=== PATIENT | female | born 1975 | race Caucasian/White ===

== ENCOUNTER → 2018-08-06 10:21 | Outpatient (CLI) | payer OTHER, MEDICAID, SELFPAY ==
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
== END ==
PROVIDERS: Family Provider Family Medicine; PCP Family Medicine; Visit Provider Physical Medicine & Rehabilitation
DX: M54.5 Low back pain (principal); M51.36 Other intervertebral disc degeneration, lumbar region; M51.37 Other intervertebral disc degeneration, lumbosacral region; M48.061 Spinal stenosis, lumbar region without neurogenic claudication; M48.07 Spinal stenosis, lumbosacral region
CPT/HCPCS: 72148

== ENCOUNTER → 2020-07-10 08:39 | Outpatient (CLI) | payer OTHER, SELFPAY ==
[2020-07-10 11:00] LABS: Add Manual Diff / Slide Review NO; Basophils Absolute Auto 100 /uL (0-100); Eosinophils Absolute Auto 200 /uL (0-450); Eosinophils Percent Auto 3.1 % (2-4); Hematocrit 42.1 % (36-46); Hemoglobin 14.6 g/dL (12.0-16.0); Lymphocytes Absolute Auto 1600 /uL (1100-4500); Lymphocytes Percent Auto 22.2 % (25-40); Mean Corpuscular HGB Conc 34.7 % (30-36); Mean Corpuscular Hemoglobin 32.3 PG (26-34); Mean Corpuscular Volume 93.1 fL (80-100); Monocytes Absolute Auto 500 /uL (0-900); Neutrophils Absolute Auto 4800 /uL (1500-7000); Neutrophils Percent Auto 66.7 % (50-75); Platelet Count 334 X10^3/uL (150-400); Red Blood Cell Count 4.52 X10^6/uL (4.0-5.2); White Blood Cell Count 7.2 X10^3/uL (4.5-11.0)
[2020-07-10 11:26] LABS: Alanine Aminotransferase 22 IU/L (<35); Albumin 4.3 g/dL (3.5-5.0); Albumin Globulin Ratio 1.7 (1.0-2.8); Alkaline Phosphatase 55 U/L (38-126); Amylase 43 U/L (30-110); Aspartate Aminotransferase 24 IU/L (14-36); BUN Creatinine Ratio 18.6 (6-22); Bilirubin Total 0.6 mg/dL (0.2-1.3); Blood Urea Nitrogen 13 mg/dL (7-17); Calcium 9.4 mg/dL (8.4-10.2); Carbon Dioxide 26 mmol/L (22-32); Chloride 103 mmol/L (98-107); Estimated Glomerular Filt Rate > 60.0 mL/min (>60); Globulin 2.6 g/dL (1.7-4.1); Glucose 95 mg/dL (70-100); HEMOLYSIS < 15 (0-50); Lipase 42 U/L (23-300); Potassium 4.3 mmol/L (3.4-5.1); Sodium 136 mmol/L (137-145); Total Protein 6.9 g/dL (6.3-8.2)
[2020-07-11 06:09] LABS: HBsAg Screen Negative (Negative); Hepatitis A Antibody IgM Negative (Negative); Hepatitis B Core Antibody IgM Negative (Negative); Hepatitis C Antibody <0.1 s/co ratio (0.0-0.9)
== END ==
PROVIDERS: Family Provider Family Medicine; PCP Family Medicine; Referring Provider Physician Assistant; Visit Provider Physician Assistant
DX: R30.0 Dysuria (principal); R10.9 Unspecified abdominal pain; R19.7 Diarrhea, unspecified; R31.9 Hematuria, unspecified
CPT/HCPCS: 36415; 80053; 80074; 82150; 83690; 85025; 87086

== ENCOUNTER → 2020-07-10 13:34 | Outpatient (CLI) | payer OTHER, SELFPAY ==
--- NOTE | 2020-07-10 13:36 | DI.CT.S_ITS ---
PROCEDURE: CT ABDOMEN PELVIS WO CON INDICATIONS: abd pain, hematuria, diarrhea, nausea TECHNIQUE: Noncontrast 5 mm thick sections acquired from the diaphragms to the symphysis. 5 mm thick coronal and sagittal reformats were then performed. For radiation dose reduction, the following was used: automated exposure control, adjustment of mA and/or kV according to patient size. COMPARISON: None. FINDINGS: Image quality: Excellent. Lung bases: Lung bases are clear. Heart size is normal. Urinary system: Both kidneys are normal in size. No kidney stones on the right but there are 2 adjacent lower 3rd left renal collecting system calculi, 1 of which measures 3 mm and the 2nd measures 4 mm. These are not associated with hydronephrosis, and along the course of the ureters through the retroperitoneum no hydroureter is present. No hydronephrosis or perinephric fat stranding. Bladder wall thickness is normal; no calcified bladder stones. Scattered pelvic phleboliths are seen at the pelvic sidewalls bilaterally but none appear to overlap the expected course of the far distal ureters. A right adnexal cyst is present, simple in appearance, measuring up to 2.9 by 1.9 cm. Other solid organs: Liver is normal in size. Gallbladder appears normal . Pancreas is normal in contours. Spleen is normal in size. No adrenal nodules. Peritoneum and bowel: Unenhanced bowel loops demonstrate normal wall thickness and caliber. No free fluid or air. Nodes and vessels: No retroperitoneal or mesenteric adenopathy by size criteria. Aorta and inferior vena cava are normal in caliber. Abdominal wall: No ventral hernias. Pelvis: No free pelvic fluid. No inguinal hernias or adenopathy. Bones: No suspicious bony lesions. No vertebral body compression fractures. IMPRESSION: Within the collecting system of the left kidney 2 separate lower 3rd renal calculi are present 1 measuring 3 mm and the 2nd measuring 4 mm, adjacent. These are not associated with hydronephrosis or hydroureter. No bladder calculus is found. No urothelial or renal cortical mass is suspected. Incidental note is made of a simple appearing ovoid small to moderate right ovarian cyst. Dictated by: Sebastian Armstrong M.D. on 07/10/2020 at 14:21 Approved by: Sebastian Armstrong M.D. on 07/10/2020 at 14:36
== END ==
PROVIDERS: Family Provider Family Medicine; PCP Family Medicine; Referring Provider Physician Assistant; Visit Provider Physician Assistant
DX: R10.9 Unspecified abdominal pain (principal); R19.7 Diarrhea, unspecified; R31.9 Hematuria, unspecified; R11.0 Nausea; N20.0 Calculus of kidney; N83.201 Unspecified ovarian cyst, right side
CPT/HCPCS: 74176

== ENCOUNTER → 2021-02-01 08:37 | Outpatient (CLI) | payer OTHER, MEDICAID, SELFPAY | PROVIDERS: Family Provider Family Medicine; PCP Family Medicine; Visit Provider Physician Assistant | DX: R10.9 Unspecified abdominal pain (principal) | CPT/HCPCS: 87086 ==

== ENCOUNTER 2023-09-23 12:14 | Emergency (ER) | payer OTHER, SELFPAY ==
[2023-09-23 13:07] VITALS: BP 142/77; PULSE 67; RESP 20; TEMP 37.1; O2SAT 100; BMI 29.7
--- NOTE | 2023-09-23 14:11 | ED.EYEPROB ---
HPI - Eye Problem General Chief complaint: Eye Problems Stated complaint: R/foggy eye, can still see out of it Time Seen by Provider: 09/23/23 13:45 Source: patient Mode of arrival: Ambulatory History of Present Illness HPI Narrative: Patient VDC, prior to evaluation Related Data Home Medications Medication Instructions Recorded Confirmed losartan 100 mg tablet (Cozaar) 100 mg ##0 01/08/18 02/15/21 ropinirole PO 02/01/21 02/15/21 cetirizine 10 mg tablet (Zyrtec) 10 mg PO DAILY PRN 02/15/21 02/15/21 meloxicam 15 mg tablet 15 mg PO DAILY 02/15/21 02/15/21 quetiapine 25 mg tablet (Seroquel) 25 mg PO BEDTIME 02/15/21 02/15/21 sertraline 25 mg tablet 25 mg PO DAILY 02/15/21 02/15/21 Previous Rx's Medication Instructions Recorded cyclobenzaprine 5 mg tablet 5 mg PO TID PRN muscle spasm #15 03/15/21 tabs phenazopyridine 200 mg tablet 200 mg PO Q8H 6 doses #6 tabs 03/15/21 (Pyridium) Allergies Allergy/AdvReac Type Severity Reaction Status Date / Time fluoxetine [From PROZAC] Allergy Mild rash Verified 09/23/23 13:12 gabapentin [GABAPENTIN] Allergy Mild rash Verified 09/23/23 13:12 Patient History Medical History Abdominal pain Diarrhea Hematuria Sciatica Family History (Updated 01/15/18 @ 00:00 by Conversion Provider) Brother Age: 53 Hypertension High cholesterol Father Age: 72 Bladder cancer High cholesterol Mother Age: 70 Hypertension Social History Smoking Status: Former smoker Smoking Status: Former smoker alcohol intake frequency: 0-2 drinks per day Substance Use Type: marijuana Exam Initial Vital Signs Initial Vital Signs: Vital Signs Temperature 98.8 F 09/23/23 13:07 Pulse Rate 67 09/23/23 13:07 Respiratory Rate 20 09/23/23 13:07 Blood Pressure 142/77 H 09/23/23 13:07 Pulse Oximetry 100 09/23/23 13:07 Oxygen Delivery Method Room Air 09/23/23 13:07 Course Orders Ordered: Discontinued Medications Diphtheria/Tetanus/Acell Pertussis (Tet,Diph,Pertuss(Acell),Vac/Pf 0.5 Ml Syringe) 0.5 ml IM .ONCE ONE Stop: 09/23/23 13:13 Fluorescein Sodium (Fluorescein 1 Mg Strip) 1 mg EYE-BOTH NOW ONE Stop: 09/23/23 14:12 Proparacaine HCl (Proparacaine 0.5% Ophth Lucinda) 1 drops EYE-BOTH NOW ONE Stop: 09/23/23 14:12 Vital Signs Vital signs: Vital Signs - 8 hr 09/23/23 13:07 Temperature 98.8 F Pulse Rate 67 Respiratory Rate 20 Blood Pressure 142/77 H Pulse Oximetry 100 Oxygen Delivery Method Room Air Discharge Plan Departure Prescriptions: No Action ropinirole PO cyclobenzaprine 5 mg tablet 5 mg PO TID PRN (Reason: muscle spasm) Qty: 15 0RF phenazopyridine [Pyridium] 200 mg tablet 200 mg PO Q8H 0 Days Qty: 6 0RF losartan [Cozaar] 100 MG tablet 100 mg Qty: 0 cetirizine [Zyrtec] 10 mg tablet 10 mg PO DAILY PRN sertraline 25 mg tablet 25 mg PO DAILY quetiapine [Seroquel] 25 mg tablet 25 mg PO BEDTIME meloxicam 15 mg tablet 15 mg PO DAILY Referrals: Michelle Mcarthur ARNP [Primary Care Provider] -
--- NOTE | 2023-09-23 14:49 | PC.NURSE ---
pt was placed in the room. went to see patient. pt no longer in the room. waited . continued to look. no patient. she must have left without telling anyone. Dr. Toure also looked for patient.
== END 2023-09-23 14:52 | disposition left against medical advice (07) ==
PROVIDERS: Emergency Provider Emergency Medicine; Family Provider Family Medicine; PCP Nurse Practitioner Family
DX: H53.8 Other visual disturbances (principal)
CPT/HCPCS: 99281

== ENCOUNTER → 2024-07-31 11:08 | Outpatient (CLI) | payer BC, SELFPAY ==
--- NOTE | 2024-07-31 11:09 | DI.MRI.S_ITS ---
PROCEDURE: MR LUMBAR SPINE WO CON INDICATIONS: Spinal stenosis, lumbar region with neurogenic cla TECHNIQUE: Noncontrast sagittal T1 spin echo and T2 fast echo, sagittal STIR, and T2 fast spin echo through the lumbar spine. In cases with scoliosis, additional coronal T2 fast spin echo may be performed. COMPARISON: [facility] [place], CR, XR LUMBAR SPINE 2 OR 3 VIEWS, 06/13/2024, 16:28. FINDINGS: Image quality: Excellent. Alignment and Curvature: There is 7 mm anterolisthesis of L5 on S1 Bone Marrow: Marrow is of normal overall signal. No acute vertebral body compression fractures. No definite pars defects are seen. Spinal Cord: Conus medullaris terminates at the L1 level. Visualized cord demonstrates normal signal and size. Paraspinous Soft Tissues: No paravertebral masses. T12-L1: Loss of disc signal. No significant disc bulge, canal stenosis or neural foraminal narrowing. L1-L2: Normal appearance. L2-L3: Loss of disc signal. Mild diffuse disc bulge is seen without significant central canal stenosis or neural foraminal narrowing. L3-L4: Loss of disc signal. Mild diffuse disc bulge and bilateral facet arthrosis with mild effacement of thecal sac anteriorly and mild left-sided neural foraminal narrowing. L4-L5: Loss of disc height and disc signal. Broad-based disc bulge and bilateral facet arthrosis with hypertrophy of ligamentum flavum causing gitz-uy-[id number] central canal stenosis, moderate right-sided neural foraminal narrowing and knya-uc-qzrjreww left-sided neural foraminal narrowing. Bulging disc is seen contacting bilateral L4 nerve roots. L5-S1: Loss of disc signal and disc height. Broad-based disc bulge and bilateral facet arthrosis with hypertrophy of ligamentum flavum causing mild central canal stenosis and wcjr-ga-lnpxjktp left-sided neural foraminal narrowing. Mild right-sided neural foraminal narrowing is seen. Bulging disc likely contacting left L5 nerve root. IMPRESSION: 1. Degenerative disc disease in mid to lower lumbar spine causing various degrees of central canal stenosis and bilateral neural foraminal narrowing more notably at L4-5 and L5-S1 levels as described above, slightly progressed since 2020 study. 2. Stable grade 1 anterolisthesis of L5 on S1. No definite pars defects. No acute compression fracture or marrow edema. Dictated by: Christopher Molina M.D. on 07/31/2024 at 17:18 Approved by: Christopher Molina M.D. on 07/31/2024 at 17:26
== END ==
LOC: MRI 11:09
PROVIDERS: Family Provider Family Medicine; PCP Nurse Practitioner Family; Referring Provider Orthopaedic Surgery Orthopaedic Surgery of the Spine; Visit Provider Orthopaedic Surgery Orthopaedic Surgery of the Spine
DX: M48.062 Spinal stenosis, lumbar region with neurogenic claudication (principal); M48.07 Spinal stenosis, lumbosacral region; M51.36 Other intervertebral disc degeneration, lumbar region; M51.37 Other intervertebral disc degeneration, lumbosacral region; M43.17 Spondylolisthesis, lumbosacral region
CPT/HCPCS: 72148

== ENCOUNTER → 2024-09-25 10:06 | Outpatient (CLI) | payer BC, SELFPAY ==
--- NOTE | 2024-09-25 10:09 | DI.CT.S_ITS ---
PROCEDURE: CT LUMBAR SPINE WO CON INDICATIONS: Spinal stenosis, lumbar region with neurogenic cla TECHNIQUE: Noncontrast 3 mm thick sections acquired from the T12 level to the sacrum. Sagittal and coronal reformats were constructed. For radiation dose reduction, the following was used: automated exposure control. COMPARISON: None. FINDINGS: Image quality: Excellent. Bones: There are only 4 non rib-bearing lumbar type vertebra. Vwyl-lh-ojyxdhsk anterior listhesis L4 on S1. No acute vertebral body compression fractures. No suspicious lytic or blastic bony lesions. No pars defects. T12-L1: Normal appearance. L1-L2: Normal appearance. L2-L3: Normal appearance. L3-L4: Normal appearance. L4-S1: There is offset from the anterior listhesis of L4 on S1 which appears to create focal moderate to severe central canal stenosis with moderate bilateral neural foraminal stenosis. Soft tissues: No retroperitoneal masses or hematomas. Visualized aorta is normal in caliber. IMPRESSION: Moderate to severe central canal stenosis at L4-S1. Moderate bilateral neural foraminal stenosis of L4-S1. Dictated by: Paul Olvera M.D. on 09/25/2024 at 11:56 Approved by: Paul Olvera M.D. on 09/25/2024 at 12:04
== END ==
PROVIDERS: Family Provider Family Medicine; PCP Nurse Practitioner Family; Referring Provider Orthopaedic Surgery Orthopaedic Surgery of the Spine; Visit Provider Orthopaedic Surgery Orthopaedic Surgery of the Spine
DX: M48.062 Spinal stenosis, lumbar region with neurogenic claudication (principal); M48.07 Spinal stenosis, lumbosacral region
CPT/HCPCS: 72131

== ENCOUNTER 2024-10-02 10:35 | Day surgery (SDC) | payer BC, SELFPAY ==
[2024-09-25 12:28] VITALS: BMI 29.5
[2024-10-02] VITALS (12 sets, daily range): BP systolic 115–162; BP diastolic 54–90; PULSE 59–82; RESP 14–22; TEMP 36–36.6; O2SAT 94–100; BMI 28.9
--- NOTE | 2024-10-02 | DI.RAD.S_ITS ---
PROCEDURE: XR LUMBAR SPINE 2-3V INDICATIONS: TLIF L5-S1 TECHNIQUE: Low resolution intraoperative fluoroscopic spot films were obtained COMPARISON: None. FINDINGS: Intraoperative fluoroscopic spot films show TLIF L5-S1 IMPRESSION: Fluoroscopic guidance No acute bony abnormality. Approved by: Silver Burns M.D. on 10/02/2024 at 20:04
--- NOTE | 2024-10-02 10:59 | P.OP_ITS ---
Operative Date/Time/Diagnoses Date of procedure: 10/02/24 Time of procedure: 11:45 Pre-op diagnosis: 1. L5-S1 anterolisthesis 2. L5-S1 bilateral foraminal stenosis Post-op diagnosis: same Procedure & Clinicians Procedure: 1. L5-S1 Postero-lateral and posterior interbody fusion 2. L5-S1 interbody cage placement. 3. L5-S1 decompressive laminectomy with bilateral facetecomies 4. L5-S1 Posterior non-segmental instrumentation 5. Elliott of bone marrow from iliac crest 6. Utilization of microsurgical technique and operating microscope 7. Utilization of robotic assisted navigation Same procedure as scheduled: Yes Indications: Patient has been having chronic back pain and worsening lumbar radiculopathy. Patient was found to have L5-S1 anterolisthesis with bilateral foraminal stenosis correlating with her symptoms. Patient failed multiple conservative management with worsening pain weakness and numbness in her lower extremity. Patient has been having difficulty performing activity of daily living. After discussing risks benefits of treatment options, patient elected proceed with surgery. Surgeon: Luís Lopez Vice President Of Compliance: Rimma Murray Click Yes if Unassisted: No Anesthesia Type: General Operative Notes Closure Type: primary Specimen(s): none sent Prosthetic devices, grafts, tissues, transplants, or devices: Globus CREO MIS screws, Rise cage Applied: catheter Estimated Blood Loss (mL): 50 Blood products transfused: none Procedure in detail: Patient was seen in the preoperative area. Risks and benefits of the surgery was discussed with the patient. Informed consent was obtained from the patient and placed in the chart. Surgical site was marked. Patient was taken to the operative room. General anesthesia was administered. Prophylactic antibiotic was given to the patient less than 30 min before the incision was made. Patient was placed into a prone position on the Reymundo table. Patient's back was then prepped and draped in the sterile fashion. Time-out was performed at this time. After patient was prepped and draped, patient's PSIS was palpated and marked bilaterally. Small 1 cm incision was made over the PSIS for placement of the reference probes. Two trocar was placed into the PSIS 1 on each side. The reference probe was attached to the trocar of the reference apparatus. At this time the C-arm imaging was used to confirm AP and lateral of L5-S1 vertebrae and merged the C-arm imaging using the medidametrics robotic navigation system with the CT of the lumbar spine. After successful merging was completed and confirmed, skin marker was used to sha out the skin incision using the medidametrics robotic arm. Bilateral incision was made at this time. Pre templated trajectory was used and guided using the medidametrics robotic navigation system for bilateral L5-S1 pedicle screw placement. This was done by using the robotic arm to guide the high-speed bur to make a cortical entry point. Next a drill was placed also using the robotic arm and guided using the navigation system drilling partially through bilateral L5, S1 pedicles. Next L5-S1 pedicle screws it was pre templated and measured was placed onto the power dedicated intermodal truck driver and inserted into the pedicles bilaterally. After all 4 screws were placed C-arm imaging was taken of both AP and lateral to confirm the placement. Excellent placement of the screws were confirmed and a matched precisely with the pre planned screw placement using the navigation system. MARs retractor was inserted using [employer] guidence. Globus MARS retractors was placed inside the incision and docked onto the L5 lamina. Using microsurgical technique and operating microscope, a L5 laminectomy and L5-S1 facetectomy was performed using a Kerrison rongeur. Patient was found have severe lateral recess and neural foramen stenosis which was fully decompressed after the laminectomy facetectomy. More than 75% of the facets were removed during the process of decompression rendering L5-S1 level grossly unstable and required a fusion procedure at the same time. The disc space at L5-S1 was identified, and a total diskectomy was performed at L5-S1 level. The endplates were decorticated using a rasp and shaver. The total diskectomy and decortication was performed at L5-S1 level in order to to accomplish a L5-S1 fusion. The local bone from the laminectomy and facetectomy was saved for local bone grafting. After the total diskectomy and decortication was completed, Viacel bone graft material was combined with local bone that was harvested earlier. At this time, a separate skin is incision was made over the iliac crest. A Jamshidi needle was inserted into the iliac crest through a separate skin incision on the right. 5 cc of bone marrow aspiration was obtained through the separate skin incision using a Jamshidi needle from the iliac crest. The bone marrow aspiration was combined with local bone and the Viacel bone grafting material. The bone grafting material was placed into the L5-S1 interbody space along with a expandable cage. The cage was expanded to its maximum height using the torque limiting screwdriver. The disc preparation as well as the cage insertion were also performed under navigation guidance. After the cage was placed, AP and lateral C-arm imaging was taken to confirm placement of the cage and excellent position was confirmed. Globus MARS retractor was inserted and docked onto the L5-S1 posterolateral gutter on the right side. Using the power drill, posterior-lateral decortication was performed at L5-S1 level until bleeding cortical bone was identified. The remaining bone grafting material was placed into the L5-S1 posterior lateral gutter he order to accomplish posterolateral fusion at the L5- S1 level. At this time the tulips were attached to the L5-S1 pedicle screw shanks. After measuring the length of the rods, they were inserted into the tulips of the pedicle screws and locked in place using locking caps and torque limiting screwdriver bilaterally. Total 4 caps and 2 titanium rods was used in order to complete the posterior instrumentation construct. After all the hardware was placed, and confirmed with AP and lateral C-arm imaging, the wound was then irrigated with sterile normal saline and packed with Ray-Jamison gauze for 3 min to accomplish hemostasis. After the gauze was removed the deep fascia was closed with #1 Vicryl suture. The subcutaneous layer was closed with 2-0 Vicryl. The skin was closed with skin halie. Patient tolerated the procedure well. There were no complications. Neuro monitoring system was used to monitor patient's neurologic status throughout entire procedure. There was no disturbance of the neural monitoring signals throughout the case. The Operation could not have been safely performed without compromising the technical result or length of the procedure, without the assistance of a skilled geological survey field assistant. The geological survey field assistant was medically necessary for proper positioning, retraction and manipulation of instruments, proper exposure, surgical preparation, and manipulation of tissue. Complications: none Post-operative Condition: stable Disposition: PACU Plan for aftercare: Admit to inpatient hospital
--- NOTE | 2024-10-02 11:15 | PM.PREOP ---
Pre-operative Note Interval Note History & Physical reviewed/Exam performed by Physician: Yes Changes to H&P: No
[2024-10-02] MEDS: ACETAMINOPHEN 325 MG TABLET 975 MG PO (11:34)
[2024-10-02] MEDS: LACTATED RINGERS 1,000 ML 42 ML IV (11:35)
[2024-10-02] MEDS: CEFAZOLIN 2 GM/100 ML PREMIX 100 ML IV ×2 (11:48→20:18)
[2024-10-02] MEDS: BUPIVACAINE 0.25% (PF) 60 ML, EPINEPHrine 0.15 MG INJ (11:59)
--- NOTE | 2024-10-02 12:05 | SUR.OPER ---
Prone on spine table, head in foam head support, padded chest and pelvic supports, gel pad at knees, lower legs supported by pillows; nipples, genitalia and toes free of pressure, arms secured on foam padded arm boards at <90 degrees abduction. Tape over blanket at thigh secured to table.
[2024-10-02] MEDS: BUPIVACAINE LIPOSOME 266 MG/20 ML VIAL INJ (13:27)
[2024-10-02] MEDS: HYDROMORPHONE 1 MG INJ IV ×6 (13:56→14:26)
[2024-10-02] MEDS: OXYCODONE IR 5 MG TABLET PO ×2 (13:57→14:58)
[2024-10-02] MEDS: hydrOXYzine HCL 25 MG TABLET 50 MG PO (13:57)
[2024-10-02] MEDS: fentaNYL 100 MCG/2 ML INJ 50 MCG IV ×2 (14:28→14:35)
[2024-10-02] MEDS: LORazepam 2 MG/ML INJ 0.5 MG IV (14:35)
[2024-10-02] MEDS: LACTATED RINGERS 1,000 ML 125 ML IV (16:21)
[2024-10-02] MEDS: ONDANSETRON 4 MG ODT SL (17:23)
--- NOTE | 2024-10-02 17:25 | PC.NURSE ---
TLIF: Pt found oob by bathroom door, only stopped because the tubing would not reach further, asked significant other to turn online marketer light and thats how this policy writer sales found them. Pt did get vd in the bathroom but it was to late to place a hat. She had nausea after getting up and received some zofran SL. This seemed to help. She needed max cues to follow her back precautions. Afterwards bed alarm was placed. Do you really think I need that? Discussed safety and the potential to fall. She seemed to understand.
[2024-10-02] MEDS: SCOPOLAMINE 1 PATCH TOP (19:16)
[2024-10-02] MEDS: METOCLOPRAMIDE 10 MG/2 ML INJ 5 MG IV (19:16)
[2024-10-02] MEDS: SENNOSIDES 8.6 MG TABLET 17.2 MG PO (20:18)
[2024-10-02] MEDS: DOCUSATE 100 MG CAPSULE PO (20:19)
[2024-10-02] MEDS: ACETAMINOPHEN 325 MG TABLET 650 MG PO (20:19)
[2024-10-03] VITALS: BP 116/69; PULSE 63; RESP 20; TEMP 37; O2SAT 97
[2024-10-03] MEDS: CEFAZOLIN 2 GM/100 ML PREMIX 100 ML IV (03:25)
[2024-10-03] MEDS: OXYCODONE IR 5 MG TABLET PO (03:26)
[2024-10-03 05:15] VITALS: BP 118/56; PULSE 58; RESP 16; TEMP 37.4; O2SAT 98
[2024-10-03] MEDS: ACETAMINOPHEN 325 MG TABLET 650 MG PO (06:29)
[2024-10-03 08:00] VITALS: BP 136/55; PULSE 64; RESP 15; TEMP 36.9; O2SAT 98
[2024-10-03] MEDS: DOCUSATE 100 MG CAPSULE PO (08:27)
--- NOTE | 2024-10-03 09:02 | PT.IIE ---
Current Diagnoses Spondylolisthesis, lumbar region (10/02/24) Spinal stenosis, lumbar region with neurogenic claudication (10/02/24) Surgery Performed Operation Date: 10/02/24 12:15 Actual Procedures p L5-S1 TLIF-Nithin - Luís Lopez MD Surgical History (Last Updated 09/25/24 @ 14:13 by Stacy Dale, RN) History of hysterectomy S/P ACL repair Medical History (Last Reviewed 03/15/21 @ 09:11 by Tobi Meredith PA-C) Abdominal pain Diarrhea Hematuria Sciatica Physical Therapy Inpatient Evaluation/Re-Eval M1 PT/OT-IP Prior Functional Status Start: 10/03/24 08:24 Freq: NEEDED Status: Active Protocol: Document 10/03/24 08:35 MB (Rec: 10/03/24 09:02 MB [id number]) Medical Review Prior Functional Status Medical History Reviewed Yes Diet/Fluid Consistency Regular Communication WNLs Mobility and Gait I Activities of Daily Living and IADL's I Social History Household Members significant other Living Arrangements House Number of Floors (Floors) One Floor Number of Stairs To Enter/Railing? 3 steps and B rail to enter, can reach one rail at a time Home Environment Standard Height Toilet,Tub/ Shower Home Equipment Front Wheel Walker,Crutches, Hand Held Shower,Grab Bars In Shower Additional Social History Comment Not working M2 PT-IP Current Condition Start: 10/03/24 08:24 Freq: NEEDED Status: Active Protocol: Document 10/03/24 08:35 MB (Rec: 10/03/24 09:02 MB [id number]) Physical Therapy Current Condition Current Condition Evaluation Date 10/03/24 Treatment Diagnosis L5-S1 fusion M3 PT-IP Subjective Start: 10/03/24 08:24 Freq: NEEDED Status: Active Protocol: Document 10/03/24 08:35 MB (Rec: 10/03/24 09:02 MB [id number]) Subjective Physical Therapy Visit Type Type Initial Evaluation Visit Start Time 08:35 Visit Stop Time 08:54 Number of PRECONSTRUCTION MANAGER Visits 0 Physical Therapy Visit Comments Patient Comments Pt up walking with SO in room and is agreeable to PT. Therapy Pain Assessment Pain When Pain Assessed At Rest Pain Present Pain Present Pain Reported Location back Intensity 4 Scale Used Numeric (0 - 10) M4 PT-IP Mobility and Gait Start: 10/03/24 08:24 Freq: NEEDED Status: Active Protocol: Document 10/03/24 08:35 MB (Rec: 10/03/24 09:02 MB [id number]) PT-Bed Mobility Assessment Rolling Type of Rolling Log Rolling,Roll to Right Level of Assist Standby Assistance Supine to Sit Supine to Sit Standby Assistance Sit to Supine Sit to Supine Standby Assistance Scooting Scooting to Edge of Bed Standby Assistance PT-Transfer Assessment Sit to and From Stand Sit to and from Stand Standby Assistance Equipment Transfer Assistive Device Gait Belt,Front Wheeled Walker Orthotic/Prosthetic Devices or Brace: No Transfers Transfer Destination Bed,Chair Transfer Technique Ambulation Transfer Ability Level of Assist Standby Assistance,1 Person Assistance,Use of Upper Extremities Comments Mobility Comments Cues for hand placement to push up from the bed and to reach back for the chair and not to hold onto walker Gait Assessment Gait Gait Assistance Required: Standby Assistance Distance (Feet) 150 Able to Maintain Weight Bearing Status Yes During Gait Assistive Devices Assistive Device Gait Belt,Front Wheeled Walker Orthotic/Prosthetic Devices or Brace: No Gait Deviations General Gait Pattern Antalgic Factors Limiting Gait Function Factors Limiting Gait Function Decreased Activity Tolerance, Limited Range of Motion,Pain Comments Gait Comments 150'x2 with slow gait and use of RW Stair Climbing Assessment Evaluation Level of Assist On Stairs Standby Assistance Devices Stair Climbing Assistive Devices Left Railing Technique/Endurance Stair Climbing Direction Ascend and Descend Stair Climbing Technique Step to Step Number of Steps Climbed 3 Query Text: Stair Climbing Set # Repetitions (reps) 1 Comments Stair Climbing Comments Both hands on left rail and facing left rail and pt performs step-to gait ascend and descend PT-Balance Assessment Sitting Balance and Reactions Static Sitting Balance Ability Good Dynamic Sitting Balance Ability Good Standing Balance and Reactions Static Standing Balance Ability Good Dynamic Standing Balance Ability Fair Device Used RW M5 PT-IP Objective Assessments Start: 10/03/24 08:24 Freq: NEEDED Status: Active Protocol: Document 10/03/24 08:35 MB (Rec: 10/03/24 09:02 MB [id number]) Orientation Orientation/Cognition Level of Alertness Alert Orientation Name,Age,Birthday,Month,Date, Year,Day of Week,Place, Situation Language Function Ability No Deficits Noted Safety Awareness Understands Safety Issues Memory Description No Deficits Noted Gross Range of Motion Upper Extremity ROM Impairments Defer to OT Lower Extremity ROM Assessment Within Functional Limits Strength Lower Extremity Strength Assessment Within Functional Limits Comments Strength Comments Did not push hip range or perform MMT today but functionally, WNLs Coordination Assessment Gross Coordination Gross Coordination Impaired Assessment Coordination Comments Slow movement POD1 Sensation Assessment Sensation Gross Sensation WNL Muscle Tone Muscle Tone WNL Yes M6 PT-IP Treatment Start: 10/03/24 08:24 Freq: NEEDED Status: Active Protocol: Document 10/03/24 08:35 MB (Rec: 10/03/24 09:02 MB [id number]) Physical Therapy Treatment Education Education Provided Precautions,Post-Op Packet, Safety M7 PT-IP Assessment and Plan Start: 10/03/24 08:24 Freq: NEEDED Status: Active Protocol: Document 10/03/24 08:35 MB (Rec: 10/03/24 09:02 MB [id number]) PT Summary Assessment and Plan Potential Rehabilitation Potential Excellent Status of Condition at Evaluation Evolving Summary Impairments Pain,ROM,Balance,Bed Mobility, Transfers,Gait,Activity Tolerance Progress Towards Goals Safe For Discharge Assessment Summary Pt is up moving in room upon arrival POD1 L5-S1 fusion and her SO is nearby. She does well with back precaution and log roll training, gait with RW and stair training. No further acute PT needs. Recommend OPPT and assistance at home. Frequency of Treatment Frequency Of Treatment Discharge Precautions Lumbar Precautions Log Roll,No Twisting,Limit Bending,Lifting Restriction of 10 lbs,Gait Belt above Incisional Area Recommendations To Nursing Amount of Assist Needed Standby Assistance Discharge Recommendations PT Discharge Recommendations Home with Assistance, Outpatient PT Transportation Needs at Discharge Private Vehicle
--- NOTE | 2024-10-03 09:50 | OT.IP.EVAL ---
Current Diagnoses Spondylolisthesis, lumbar region (10/02/24) Spinal stenosis, lumbar region with neurogenic claudication (10/02/24) Surgery Performed Operation Date: 10/02/24 12:15 Actual Procedures p L5-S1 TLIF-Robot - Luís Lopez MD Past Medical History (Last Reviewed 03/15/21 @ 09:11 by Tobi Meredith PA-C) Abdominal pain Diarrhea Hematuria Sciatica Surgical History (Last Updated 09/25/24 @ 14:13 by Stacy Dale RN) History of hysterectomy S/P ACL repair Occupational Therapy Inpatient Evaluation/Re-Eval M1 PT/OT-IP Prior Functional Status Start: 10/03/24 08:24 Freq: NEEDED Status: Active Protocol: Document 10/03/24 09:51 [facility] (Rec: 10/03/24 10:04 [facility] [id number]) Medical Review Prior Functional Status Medical History Reviewed Yes Diet/Fluid Consistency Regular Communication WNLs Mobility and Gait I but had pain. Activities of Daily Living and IADL's I Social History Household Members significant other Living Arrangements House Number of Floors (Floors) One Floor Number of Stairs To Enter/Railing? 3 steps and B rail to enter, can reach one rail at a time Home Environment Standard Height Toilet,Tub/ Shower Home Equipment Front Wheel Walker,Crutches, Hand Held Shower,Grab Bars In Shower Additional Social History Comment Not working M2 OT-IP Current Condition Start: 10/03/24 09:50 Freq: Status: Active Protocol: Document 10/03/24 09:51 [facility] (Rec: 10/03/24 10:04 [facility] [id number]) Occupational Therapy Current Condition Current Condition Evaluation Date 10/03/24 Treatment Diagnosis S/P L5-S1 TLIF Diagnosis Onset Date 10/02/24 Post Operative Precautions Lumbar Precautions Log Roll,No Twisting,Limit Bending,Lifting Restriction of 10 lbs,Gait Belt above Incisional Area M3 OT- IP Subjective and Pain Start: 10/03/24 09:50 Freq: Status: Active Protocol: Document 10/03/24 09:51 [facility] (Rec: 10/03/24 10:04 [facility] [id number]) OT- Subjective Occupational Therapy Visit Type Type Initial Evaluation Visit Start Time 09:13 Visit Stop Time 09:50 Occupational Therapy Visit Comments Patient Comments Pt agreed to get up and get dressed. Patient/Caregiver Goals TO go home. OT Pain Assessment Pain When Pain Assessed At Rest Pain Present Pain Present Pain Reported Location back Intensity 5 Scale Used Numeric (0 - 10) M4 OT- IP ADL's Start: 10/03/24 09:50 Freq: Status: Active Protocol: Document 10/03/24 09:51 [facility] (Rec: 10/03/24 10:04 [facility] [id number]) OT DCN-Dhjd-Tukrhqh General Evaluation Self-Feeding Ability Independent OT ADL-Grooming Comments OT Grooming Comments Not performed. OT ADL-Oral Care Comments Oral Care Comments Educated to hinge at her hips or just spit into a cup to best follow her back precautions. OT ADL-Dressing General Eval Lower Body Dressing Ability Maximum Assistance Areas Needing Assistance Socks,Shoes Comments OT Dressing Comments Went over use of LB dressing equipment and pt looking to obtain items. OT ADL-Toileting General Evaluation Toileting Ability Independent Comments OT Toileting Comments Able to practice and pt able to stand and able to reach appropriately to wipe. Suggested to use wipes. Showed pt use of toilet paper aid. OT ADL-Bathing Comments OT Bathing Comments Pt states to shower at home. Spoke of dressing/bandage care for showering needs. Suggested pt get a tub bench. M5 OT- IP IADL's Start: 10/03/24 09:50 Freq: Status: Active Protocol: Document 10/03/24 09:51 [facility] (Rec: 10/03/24 10:04 [facility] [id number]) OT-Instrumental Activities of Daily Living Deficits IADL Deficits Identified Deficits Home Safety Awareness Awareness of Need for Assistance at Home Good Awareness Ability to Problem Solve Emergency Able to Problem Solve Situations Home Safety Comments Pt has a supportive SO to assist with all her needs. Meal Preparation Meal Preparation Caregiver Provides Assist Equalizer Operator Equalizer Operator Caregiver Provides Assist M6 OT- IP Functional Cognition Start: 10/03/24 09:50 Freq: Status: Active Protocol: Document 10/03/24 09:51 [facility] (Rec: 10/03/24 10:04 [facility] [id number]) Cognitive Factors Limiting Selfcare Function Cognitive Ability Level of Alertness Alert Patient Orientation Name,Age,Birthday,Month,Date, Year,Day of Week,Place, Situation Attention Span Ability Capable of Focused Attention, Capable of Sustained Attention Ability to Follow Commands Able to Follow Multi-Step Commands Safety Awareness Decreased Ability to Apply Precautions,Underestimates Need for Assistance Cognitive Comments Cognitive Assessment Comments Pt needing reminders to to slow down and follow her back precautions. OT- Vision and Hearing OT- Hearing Assessment OT- Hearing Assessment WFL OT- Vision Assessment Visual Acuity Glasses All The Time Visual Attentiveness WFL Occular Pursuits WFL M7 OT- IP Mobility and Balance Start: 10/03/24 09:50 Freq: Status: Active Protocol: Document 10/03/24 09:51 [facility] (Rec: 10/03/24 10:04 [facility] [id number]) OT-Transfer Assessment Sit to and From Stand Sit to and from Stand Standby Assistance Transfers Transfer Ability Standby Assistance Technique Transfer Destination Chair,Toilet Comments Mobility Comments SBA with FWW. OT- Balance Assessment Sitting Balance and Reactions Static Sitting Balance Ability Normal Dynamic Sitting Balance Ability Good Standing Balance and Reactions Static Standing Balance Ability Good Dynamic Standing Balance Ability Good M8 OT- IP Objective Assessments Start: 10/03/24 09:50 Freq: Status: Active Protocol: Document 10/03/24 09:51 [facility] (Rec: 10/03/24 10:04 [facility] [id number]) OT Gross Range of Motion Upper Extremity Range of Motion Assessment Within Functional Limits OT Strength Upper Extremity Strength Assessment Within Functional Limits M9 OT- IP Assessment and Plan Start: 10/03/24 09:50 Freq: Status: Active Protocol: Document 10/03/24 09:51 [facility] (Rec: 10/03/24 10:04 [facility] [id number]) OT Summary Assessment and Plan Potential Rehabilitation Potential Excellent Analytic Complexity at Evaluation Low Summary OT Impairments Pain,Strength,Balance, Functional Mobility Progress Towards Goals Progressing Toward Goals Assessment Summary Pt low complexity and main barriers are pain, needing cues to slow down and follow her back precautions. Pt to go home with her SO to assist and eventually after recovery to outpt PT. Goals Grooming Goal Independent Dressing Goal Independent,Long Handled Shoe Horn,Certified Welding Inspector,Sock Aid Toileting Goal Independent Bathing Goal Minimal Assistance Toilet Transfer Goal Independent Shower Transfer Goal Standby Assistance Days to Meet Goals 5 Frequency of Treatment Other frequency 5x/week Treatment Plan OT Treatment Plan ADL Training,Functional Mobility,Patient/Family Education,Discharge Planning Discharge Recommendations OT Discharge Recommendations Home with Assistance Home Equipment Needs LB dressing equipment, BSC, tub bench Transportation Needs at Discharge Private Vehicle
--- NOTE | 2024-10-03 09:58 | P.DS_ITS ---
History of Present Illness History of Present Illness Chief complaint: TLIF *OPB* Narrative: Emilie is a pleasant 49 year old female who is POD#1 s/p L5-S1 Postero-lateral and posterior interbody fusion by Dr. Lopez. This morning patient states she is doing well, her pain is mild-moderate and well controlled w/ oral Oxy PRN and APAP for baseline pain control. No radiating pain, she states she is ready to go home. She has been up and worked w/ OT this morning, she is urinating well w/o issue. She lives at home with her who is willing and able to aid in her postop recovery. She has post-op pain medications at home. Denies fever, chills, chest pain, SOB, nausea, vomiting. Discharge Providers Provider Date of admission: 10/02/24 10:38 Discharge Date: 10/03/24 Primary care physician: MAXWELL Allisno Consults: 10/02/24 14:55 Consult to Occupational Therapy Evaluate & Treat Comment: Physician Instructions: Evaluate and treat Consult to Physical Therapy Evaluate & Treat Comment: Physician Instructions: Evaluate and Treat Discharge provider: Savannah Cervantes PA-C Summary Hospital Course Discharge Diagnosis: L5-S1 Postero-lateral and posterior interbody fusion Hospital Course: Uncomplicated hospital course Exam Vital Signs (past 8 hours): - 10/03/24 05:15 10/03/24 08:00 Temperature 99.3 F 98.4 F Pulse Rate 58 L 64 Respiratory Rate 16 15 Blood Pressure 118/56 L 136/55 L Pulse Oximetry 98 98 Oxygen Flow Rate 0 0 Oxygen Delivery Method Room Air Oxygen Flow Rate 0 Narrative Exam Narrative: Patient sitting up comfortably in bedside chair, dressed in her home clothes during our interview today. No acute distress. AOx3. 5/5 strength with DF, PF, EHL bilaterally. Gross sensation intact throughout bilateral lower extremities. Calves soft and non-tender bilaterally. Brisk capillary refill, pulses intact. Post-surgical dressing clean, dry and intact over the lumbar spine without drainage. PFSH Medical History (Updated 10/08/23 @ 00:00 by ) Sciatica Abdominal pain Hematuria Diarrhea Surgical History (Updated 09/25/24 @ 14:13 by Stacy Dale RN) S/P ACL repair History of hysterectomy Family History (Updated 01/15/18 @ 00:00 by Conversion Provider) Brother Age: 54 Hypertension High cholesterol Father Age: 73 Bladder cancer High cholesterol Mother Age: 71 Hypertension Social History household members: significant other Smoking Status: Current some day smoker alcohol intake: former Discharge Assessment & Plan Assessment and Plan Assessment: stable s/p L5-S1 Postero-lateral and posterior interbody fusion Plan of Treatment: 1) Plan to discharge to home today with . 2) Continue multimodal pain management. She has post-op pain medications at home already. 3) mechanical DVT prophylaxis 4) walk often however maintain BLT restrictions. Patient states understanding. 5) Keep dressing intact, clean, dry until 2 week postop appointment. No soaking the incision site in pools or tubs. No topical ointments or creams to the incision site. 6) Follow up at [facility] in 2 weeks for a postop appointment and wound check. All patient and he husbands questions were answered, they demonstrates understanding and are in agreement with the plan. Call our office if any questions or concerns arise. Discharge Plan Discharge Plan Patient Disposition: Home Discharge orders & Medications Prescriptions: New docusate sodium 100 mg Capsule 100 mg PO BID Qty: 30 0RF ondansetron 4 mg Tablet,Disintegrating 4 mg sublingual Q4HR PRN (Reason: Nausea) Qty: 7 0RF oxycodone 5 mg Tablet 5 mg PO Q4-6H PRN (Reason: Pain, Moderate (4-6)) Qty: 30 0RF acetaminophen 325 mg Tablet 650 mg PO Q6H PRN (Reason: Fever/Mild Pain (1-3)) Qty: 90 0RF Follow up/Referrals: Luís Lopez MD [Physician] - 10/22/24 11:00 am (Follow up w/ Johnnie Dougherty PA-C, at [facility] office in [place].) Michelle Mcarthur ARNP [Primary Care Provider] - Diet/Activity/Treatments Diet: Diet as Tolerated Activity: No deep bending or twisting at the waist. No lifting more than 10 pounds. Skin/Wound/Dressing Care Report to your healthcare provider any signs of infection, such as:: chills, fe chelle, night sweats, unusual drainage and unusual redness Dressing: May shower. Keep dressing as dry as possible. If dressing becomes wet or dirty, remove and replace with clean, dry gauze. No bathing or otherwise soaking incisions. Do not apply any creams, lotions, or ointments to incisions. Visit Report/Discharge Packet Instructions: DI for Prescription Opioid Use, DI for Transforaminal Lumbar Interbody Fusion Stand Alone Forms: Patient Portal/API, Stroke Signs & Symptoms, Surgery Discharge Discharge Data Primary Care Provider: Michelle Mcarthur
--- NOTE | 2024-10-03 10:55 | PC.NURSE ---
Pt is dressed and ready for discharge home with S.O. IV has been removed. DSG to back changed. Went over d/c instructions with Pt and S.O.-discussed d/c meds, time of last dose, reviewed stroke education, s/s of infection, no driving while on narcotics and until cleared by MD, drink plenty of fluids to prevent constipation or dehydration, take no more than 3000mg of Tylenol in 24 hours and follow up as scheduled. Pt denied further questions and was taken out via w/c by MINK RANCHER to POV with S.O. and all belongings.
== END 2024-10-03 10:59 | disposition home or self-care (01) ==
LOC: OR 10:36 → AC 10-03 08:45 → OR 10-03 08:50 → AC 10-03 08:50
PROVIDERS: Family Provider Family Medicine; PCP Nurse Practitioner Family; Referring Provider Orthopaedic Surgery Orthopaedic Surgery of the Spine; Visit Provider Orthopaedic Surgery Orthopaedic Surgery of the Spine
PROC: (CPT 22633; principal; 2024-10-02 12:15)
DX: M48.061 Spinal stenosis, lumbar region without neurogenic claudication (principal); M43.16 Spondylolisthesis, lumbar region; M54.16 Radiculopathy, lumbar region
CPT/HCPCS: 22633; 22840; 22853; 63052; 0055T; 20939; 72100; 76000; 97161; 97165; 97535; A9270; C1713; C9290; J0171; J0690; J1100; J1171; J2060; J2250; J2405; J2704; J2765; J3010